=== PATIENT | female | born 1960 | race Caucasian/White ===

== ENCOUNTER 2021-04-23 07:45 | Day surgery (SDC) | payer OTHER ==
[2021-04-23] MEDS ORDERED: Depo-Medrol 40 MG/ML IM ONE (07:46)
[2021-04-23] MEDS ORDERED: BUPIVACAINE 0.5% VIAL IJ ONE (07:46)
[2021-04-23] MEDS ORDERED: Lactated Ringers 1,000 ML IV ONE (09:11)
[2021-04-23] MEDS ORDERED: DIPRIVAN 200 MG/20 ML IV ONE (09:49)
--- NOTE | 2021-04-24 09:50 | XRAY ---
Indication: Right shoulder and subacromial bursa injection. Intraoperative fluoroscopy provided for 20 seconds. Single digital spot image submitted for interpretation demonstrates needle tip projecting subacromial. Small amount of contrast seen subacromial and and glenohumeral joint injected for needle tip placement. Correlate with intraoperative findings/report.
--- NOTE | 2021-04-24 09:57 | XRAY ---
20 seconds of fluoroscopy was used for an intra-articular and subachromial bursa injection.
== END 2021-04-23 10:12 | disposition home or self-care (01) ==
LOC: SDC-PAIN 07:45
PROVIDERS: ATTEND Psychiatry & Neurology Pain Medicine
DX: M19.011 Primary osteoarthritis, right shoulder (principal); M75.51 Bursitis of right shoulder; E11.9 Type 2 diabetes mellitus without complications; Z79.899 Other long term (current) drug therapy
CPT/HCPCS: 20610; 73030; 77002; 82947; J1030; J2704; Q9966